=== PATIENT | female | born 1960 | race Caucasian/White ===

== ENCOUNTER 2017-11-14 15:37 | Emergency (ER) | payer BC ==
[2017-11-14] MEDS ORDERED: 50% Dextrose in Water 50 ML Syringe ONE (15:38)
[2017-11-14] MEDS ORDERED: 50% Dextrose in Water 50 ML Syringe IVPUSH ONE (15:40)
--- NOTE | 2017-11-14 15:43 | EDM.PDOC ---
ED HPI GENERAL MEDICAL PROBLEM - General Chief Complaint: Diabetic Complaint Stated Complaint: DIABETIC SEIZURE Time Seen by Provider: 11/14/17 15:42 Source of Information: Reports: Patient - History of Present Illness INITIAL COMMENTS - FREE TEXT/NARRATIVE: HISTORY AND PHYSICAL: History of present illness: []Patient presents with insulin reaction, just prior to arrival she had taken a dose of sliding scale insulin after eating with her NovoLog pen her found her to be in an altered mental state, he provided oral glucose on arrival her Accu-Chek measured 55, on [facility] urologist ring 25, we provided a half amp of D50 patient was alert mental status improved greatly she has been stable in the 1 teens over the last hour or hour and a half No fever nausea vomiting chills sweats no chest pain shortness breath headache dizziness palpitation no bowel or urine symptoms Review of systems: As per history of present illness and below otherwise all systems reviewed and negative. Past medical history: As per history of present illness and as reviewed below otherwise noncontributory. Surgical history: As per history of present illness and as reviewed below otherwise noncontributory. Social history: No reported history of drug or alcohol abuse. Family history: As per history of present illness and as reviewed below otherwise noncontributory. Physical exam: HEENT: Atraumatic, normocephalic, pupils reactive, negative for conjunctival pallor or scleral icterus, mucous membranes moist, throat clear, neck supple, nontender, trachea midline. Lungs: Clear to auscultation, breath sounds equal bilaterally, chest nontender. Heart: S1S2, regular, negative for clicks, rubs, or JVD. Abdomen: Soft, nondistended, nontender. Negative for masses or hepatosplenomegaly. Negative for costovertebral tenderness. Pelvis: Stable nontender. Genitourinary: Deferred. Rectal: Deferred. Extremities: Atraumatic, negative for cords or calf pain. Neurovascular unremarkable. Neuro: Awake, alert, oriented. Cranial nerves II through XII unremarkable. Cerebellum unremarkable. Motor and sensory unremarkable throughout. Exam nonfocal. Diagnostics: []CBC CMP UA EKG Chest 1 view Therapeutics: []Half amp D50 Potassium 40 mEq by mouth now 40 mEq by mouth daily 3 days Continue normal diet and insulin as directed Impression: []Hypoglycemia resolved Insulin reaction resolved Hypokalemia Chronic history of baseline Definitive disposition and diagnosis as appropriate pending reevaluation and review of above. - Related Data Allergies Allergy/AdvReac Type Severity Reaction Status Date / Time No Known Allergies Allergy Verified 11/14/17 15:39 Home Meds: Home Meds . [Unable to Verify Home Med List] 11/14/17 [History] Social & Family History - Tobacco Use Smoking Status *Q: Current Every Day Smoker Years of Tobacco use: 30 - Alcohol Use Days Per Week of Alcohol Use: 0 - Recreational Drug Use Recreational Drug Use: No ED ROS GENERAL - Review of Systems Review Of Systems: ROS reveals no pertinent complaints other than HPI. ED EXAM GENERAL NO PERIP PULSE - Physical Exam Exam: See Below Course - Vital Signs Last Recorded V/S: Last Vital Signs Temp 96.0 F 11/14/17 15:39 Pulse 71 11/14/17 15:39 Resp 18 11/14/17 15:39 BP 123/39 L 11/14/17 15:39 Pulse Ox 96 11/14/17 15:39 - Orders/Labs/Meds Orders: Active Orders 24 hr Category Date Time Status EKG Documentation Completion [RC] STAT Care 11/14/17 15:42 Active UA W/MICROSCOPIC [URIN] Stat Lab 11/14/17 15:41 Uncollected Sodium Chloride 0.9% [Normal Saline] 1,000 ml Med 11/14/17 15:45 Active IV STAT Medication Orders Sodium Chloride (Normal Saline) 1,000 mls @ 125 mls/hr IV STAT CRICKET Last Admin: 11/14/17 16:26 Dose: 125 mls/hr Labs: Laboratory Tests 11/14/17 11/14/17 11/14/17 Range/Units 15:50 15:50 15:57 WBC 9.76 (4.0-11.0) K/uL RBC 4.67 (4.30-5.90) M/uL Hgb 14.6 (12.0-16.0) g/dL Hct 42.7 (36.0-46.0) % MCV 91.4 (80.0-98.0) fL MCH 31.3 (27.0-32.0) pg MCHC 34.2 (31.0-37.0) g/dL RDW Std Deviation 43.8 (28.0-62.0) fl RDW Coeff of Larry 13 (11.0-15.0) % Plt Count 327 (150-400) K/uL MPV 10.70 (7.40-12.00) fL Neut % (Auto) 40.7 L (48.0-80.0) % Lymph % (Auto) 47.7 H (16.0-40.0) % [place] % (Auto) 9.9 (0.0-15.0) % Eos % (Auto) 1.2 (0.0-7.0) % Baso % (Auto) 0.5 (0.0-1.5) % Neut # (Auto) 4.0 (1.4-5.7) K/uL Lymph # (Auto) 4.7 H (0.6-2.4) K/uL [place] # (Auto) 1.0 H (0.0-0.8) K/uL Eos # (Auto) 0.1 (0.0-0.7) K/uL Baso # (Auto) 0.1 (0.0-0.1) K/uL Nucleated RBC % 0.2 /100WBC Nucleated RBCs # 0 K/uL Sodium 141 (136-146) mmol/L Potassium 2.9 L (3.5-5.1) mmol/L Chloride 108 (98-110) mmol/L Carbon Dioxide 22 (21-31) mmol/L BUN 14 (6.0-23.0) mg/dL Creatinine 0.7 (0.6-1.5) mg/dL Est Cr Clr Drug Dosing 71.82 mL/min Estimated GFR (MDRD) > 60.0 ml/min Glucose 25 L* (60-110) mg/dL POC Glucose 98 (60-110) mg/dL Calcium 9.6 (8.8-10.8) mg/dL Total Bilirubin 0.5 (0.1-1.5) mg/dL AST 19 (5-40) IU/L ALT 14 (8-54) IU/L Alkaline Phosphatase 106 (40-150) Total Protein 7.5 (6.0-8.0) g/dL Albumin 4.2 (3.5-5.0) g/dL Globulin 3.3 (2.0-3.5) g/dL Albumin/Globulin Ratio 1.3 (1.3-2.8) 11/14/17 11/14/17 11/14/17 Range/Units 16:20 17:01 17:32 WBC (4.0-11.0) K/uL RBC (4.30-5.90) M/uL Hgb (12.0-16.0) g/dL Hct (36.0-46.0) % MCV (80.0-98.0) fL MCH (27.0-32.0) pg MCHC (31.0-37.0) g/dL RDW Std Deviation (28.0-62.0) fl RDW Coeff of Larry (11.0-15.0) % Plt Count (150-400) K/uL MPV (7.40-12.00) fL Neut % (Auto) (48.0-80.0) % Lymph % (Auto) (16.0-40.0) % [place] % (Auto) (0.0-15.0) % Eos % (Auto) (0.0-7.0) % Baso % (Auto) (0.0-1.5) % Neut # (Auto) (1.4-5.7) K/uL Lymph # (Auto) (0.6-2.4) K/uL [place] # (Auto) (0.0-0.8) K/uL Eos # (Auto) (0.0-0.7) K/uL Baso # (Auto) (0.0-0.1) K/uL Nucleated RBC % /100WBC Nucleated RBCs # K/uL Sodium (136-146) mmol/L Potassium (3.5-5.1) mmol/L Chloride (98-110) mmol/L Carbon Dioxide (21-31) mmol/L BUN (6.0-23.0) mg/dL Creatinine (0.6-1.5) mg/dL Est Cr Clr Drug Dosing mL/min Estimated GFR (MDRD) ml/min Glucose (60-110) mg/dL POC Glucose 81 117 H 146 H (60-110) mg/dL Calcium (8.8-10.8) mg/dL Total Bilirubin (0.1-1.5) mg/dL AST (5-40) IU/L ALT (8-54) IU/L Alkaline Phosphatase (40-150) Total Protein (6.0-8.0) g/dL Albumin (3.5-5.0) g/dL Globulin (2.0-3.5) g/dL Albumin/Globulin Ratio (1.3-2.8) Meds: Medications Generic Name Dose Route Start Last Admin Trade Name Veronica PRN Reason Stop Dose Admin Sodium Chloride 1,000 mls @ 125 mls/hr 11/14/17 15:45 11/14/17 16:26 Normal Saline IV 125 mls/hr STAT CRICKET Administration Discontinued Medications Generic Name Dose Route Start Last Admin Trade Name Freq PRN Reason Stop Dose Admin Potassium Chloride 40 meq 11/14/17 17:23 11/14/17 17:30 Klor-Con M20 PO 11/14/17 17:24 40 meq ONETIME ONE Administration Departure - Departure Time of Disposition: 18:06 Disposition: Home, Self-Care 01 Condition: Good Clinical Impression: Insulin reaction, Hypoglycemia - Discharge Information Referrals: PCP,Unknown [Primary Care Provider] - Forms: ED Department Discharge Additional Instructions: Eat your regular dinner tonight Hold insulin for tonight Continue regular insulin dosing tomorrow Return if symptoms persist or worsen or new concerning symptoms develop Potassium replacement for the next 3 days as directed Follow-up with primary care in 2 weeks sooner as needed The following information is given to patients seen in the emergency department who are being discharged to home. This information is to outline your options for follow-up care. We provide all patients seen in our emergency department with a follow-up referral. The need for follow-up, as well as the timing and circumstances, are variable depending upon the specifics of your emergency department visit. If you don't have a primary care physician on staff, we will provide you with a referral. We always advise you to contact your personal physician following an emergency department visit to inform them of the circumstance of the visit and for follow-up with them and/or the need for any referrals to a consulting specialist. The emergency department will also refer you to a specialist when appropriate. This referral assures that you have the opportunity for follow-up care with a specialist. All of these measure are taken in an effort to provide you with optimal care, which includes your follow-up. Under all circumstances we always encourage you to contact your private physician who remains a resource for coordinating your care. When calling for follow-up care, please make the office aware that this follow-up is from your recent emergency room visit. If for any reason you are refused follow-up, please contact the [facility] emergency department at and asked to speak to the emergency department charge nurse. - My Orders Last 24 Hours: My Active Orders 11/14/17 15:41 UA W/MICROSCOPIC [URIN] Stat 11/14/17 15:42 EKG Documentation Completion [RC] STAT 11/14/17 15:45 Sodium Chloride 0.9% [Normal Saline] 1,000 ml IV STAT - Assessment/Plan Last 24 Hours: My Active Orders 11/14/17 15:41 UA W/MICROSCOPIC [URIN] Stat 11/14/17 15:42 EKG Documentation Completion [RC] STAT 11/14/17 15:45 Sodium Chloride 0.9% [Normal Saline] 1,000 ml IV STAT
[2017-11-14] MEDS ORDERED: Sodium Chloride 0.9% 1,000 ML IV SCH (15:45)
--- NOTE | 2017-11-14 16:29 | CR ---
EXAMINATION: Portable chest radiograph. HISTORY: Pain. FINDINGS: The trachea is midline. The cardiomediastinal silhouette is within normal limits. No pulmonary infilt rates, effusions or pneumothorax. Osseous structures appear unremarkable. IMPRESSION: No acute cardiopulmonary process.
[2017-11-14 16:34] LABS: CHLORIDE,CL 108 mmol/L (98-110); SODIUM,NA 141 mmol/L (136-146)
[2017-11-14] MEDS ORDERED: Potassium Chloride 20 MEQ Tab.ER PO ONE (17:23)
[2017-11-14 23:09] VITALS: BP 127/58
== END 2017-11-14 18:21 | disposition home or self-care (01) ==
LOC: MW.ED 15:37
DX: R41.82 Altered mental status, unspecified (principal); T38.3X5A Adverse effect of insulin and oral hypoglycemic [antidiabetic] drugs, initial encounter; E11.649 Type 2 diabetes mellitus with hypoglycemia without coma; E87.6 Hypokalemia; F17.200 Nicotine dependence, unspecified, uncomplicated
CPT/HCPCS: 36415; 71010; 80053; 82962; 85025; 93005; 96361; 96374; 99285; A9270; J7040; J7060; 99284

== ENCOUNTER 2018-12-19 15:15 | Emergency (ER) | payer BC ==
--- NOTE | 2018-12-19 15:59 | EDM.PDOC ---
ED HPI GENERAL MEDICAL PROBLEM - General Chief Complaint: Diabetic Complaint Stated Complaint: DIABETIC ISSUES Time Seen by Provider: 12/19/18 15:30 Source of Information: Reports: Patient, Family () History Limitations: Reports: No Limitations - History of Present Illness INITIAL COMMENTS - FREE TEXT/NARRATIVE: Patient presents via EMS with a hypoglycemic episode. Both the patient and her recount the exact same story: The patient did not go home to eat lunch as she usually does because her vehicle was being repaired. She usually takes 25 units of Lantus daily and twice a day glucose checks with sliding scale-- averaging about 10 units twice a day. Today, she ate only what she had at her workplace. It was a dish she had never had and she did not like it so she only ate a very small amount. She had some glucose tabs with her but did not get to them soon enough. She reports that she has not been ill in any other way with dysuria, upper respiratory symptoms fever and so forth. She was going about her usual day at work. She just saw her primary care provider yesterday and "all my labs and everything looked normal". Her states that about a year and a half ago the same thing happened when she did not eat enough but usually she is conscientious about her diabetes and glucose control. - Related Data Allergies Allergy/AdvReac Type Severity Reaction Status Date / Time No Known Allergies Allergy Verified 12/19/18 15:30 Home Meds: Home Meds . [Unable to Verify Home Med List] 11/14/17 [History] Past Medical History HEENT History: Reports: None Cardiovascular History: Reports: None Respiratory History: Reports: None Gastrointestinal History: Reports: None Genitourinary History: Reports: None TREASURY ACCOUNTANT History: Reports: None Musculoskeletal History: Reports: Other (See Below) Other Musculoskeletal History: ankle surgery Neurological History: Reports: None Psychiatric History: Reports: None Endocrine/Metabolic History: Reports: Diabetes, Type II Hematologic History: Reports: None Immunologic History: Reports: None Oncologic (Cancer) History: Reports: None Dermatologic History: Reports: None - Past Surgical History Head Surgeries/Procedures: Reports: None HEENT Surgical History: Reports: None Cardiovascular Surgical History: Reports: None Respiratory Surgical History: Reports: None GI Surgical History: Reports: None Female Surgical History: Reports: None Endocrine Surgical History: Reports: None Neurological Surgical History: Reports: None Musculoskeletal Surgical History: Reports: None Oncologic Surgical History: Reports: None Dermatological Surgical History: Reports: None Social & Family History - Family History Family Medical History: Noncontributory - Tobacco Use Smoking Status *Q: Current Every Day Smoker Years of Tobacco use: 30 Packs/Tins Daily: 1 - Caffeine Use Caffeine Use: Reports: None - Recreational Drug Use Recreational Drug Use: No ED ROS GENERAL - Review of Systems Review Of Systems: ROS reveals no pertinent complaints other than HPI. ED EXAM GENERAL NO PERIP PULSE - Physical Exam Exam: See Below Exam Limited By: No Limitations General Appearance: Alert, No Apparent Distress Ears: Normal External Exam Nose: Normal Inspection Throat/Mouth: Normal Inspection Head: Atraumatic, Normocephalic Neck: Normal Inspection, Supple Respiratory/Chest: No Respiratory Distress, Lungs Clear, Normal Breath Sounds, No Accessory Muscle Use Cardiovascular: Normal Peripheral Pulses, Regular Rate, Rhythm Extremities: Normal Inspection, No Pedal Edema Neurological: Alert, Oriented, No Motor/Sensory Deficits Psychiatric: Normal Affect, Normal Mood Skin Exam: Warm, Dry, Intact, Normal Color, No Rash Course - Vital Signs Last Recorded V/S: Last Vital Signs Temp 34.1 C L 12/19/18 15:28 Pulse 75 12/19/18 15:28 Resp 18 12/19/18 15:28 BP 147/75 H 12/19/18 15:28 Pulse Ox 98 12/19/18 15:28 - Orders/Labs/Meds Labs: Laboratory Tests 12/19/18 Range/Units 15:26 POC Glucose 142 H (60-110) mg/dL Departure - Departure Time of Disposition: 16:00 Disposition: Home, Self-Care 01 Clinical Impression: Hypoglycemia associated with diabetes - Discharge Information *PRESCRIPTION DRUG MONITORING PROGRAM REVIEWED*: Not Applicable *COPY OF PRESCRIPTION DRUG MONITORING REPORT IN PATIENT AMY: Not Applicable Referrals: Martha Garcia DO [Physician] - Additional Instructions: 1. Resume usual routine with medications and diet. Guard against inadequate calorie intake. 2. Do not stay alone this afternoon and this evening.
[2018-12-19 16:25] VITALS: BP 122/61
== END 2018-12-19 16:26 | disposition home or self-care (01) ==
LOC: MW.ED 15:15
DX: E11.649 Type 2 diabetes mellitus with hypoglycemia without coma (principal); F17.210 Nicotine dependence, cigarettes, uncomplicated
CPT/HCPCS: 82962; 99284

== ENCOUNTER 2019-08-20 08:19 | Emergency (ER) | payer BC ==
[2019-08-20] MEDS ORDERED: 50% Dextrose in Water 50 ML Syringe IVPUSH ONE (08:20)
[2019-08-20] MEDS ORDERED: 50% Dextrose in Water 50 ML Syringe ONE (08:23)
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
[2019-08-20] MEDS ORDERED: Sodium Chloride 0.9% 1,000 ML IV ONE (08:55)
[2019-08-20] MEDS ORDERED: Sodium Chloride 0.9% 1,000 ML IV SCH (09:00)
[2019-08-20 09:15] LABS: BLOOD UREA NITROGEN,BUN 14 mg/dL (7.0-18.0); CARBON DIOXIDE,CO2 23.5 mmol/L (21.0-32.0); CHLORIDE,CL 108 mmol/L (98-107); GLUCOSE RANDOM 93 mg/dL (74-106); SODIUM,NA 142 mmol/L (136-145)
--- NOTE | 2019-08-20 10:22 | CR ---
Chest: Portable view of the chest was obtained. Comparison: Prior chest x-ray of 11/14/17. Heart size and mediastinum are normal. Questionable nodule within the right upper lung is seen. Lungs show no acute parenchymal change. Bony structures are grossly intact. Impression: 1. Nodule within the right upper chest. Uncertain if this is due to costochondral calcification or actual parenchymal nodule. Noncontrast chest CT would be helpful to further evaluate. 2. Nothing acute is otherwise seen on portable chest x-ray. Diagnostic code #9 [id number]
[2019-08-20 14:30] VITALS: BP 136/64; PULSE 74
== END 2019-08-20 11:01 | disposition home or self-care (01) ==
LOC: MW.ED 08:19
DX: E11.649 Type 2 diabetes mellitus with hypoglycemia without coma (principal)
CPT/HCPCS: 36415; 71045; 80053; 82962; 84443; 84484; 85025; 93005; 96361; 96374; 99284; J7040; J7060

== ENCOUNTER 2022-09-16 09:20 | Emergency (ER) | payer BC ==
[2022-09-16 10:28] VITALS: BP 141/47; PULSE 66
[2022-09-16 10:53] LABS: CARBON DIOXIDE,CO2 25.7 mmol/L (21.0-32.0); POTASSIUM,K 4.5 mmol/L (3.5-5.1)
== END 2022-09-16 17:49 | disposition home or self-care (01) ==
LOC: MW.ED 09:20
DX: R07.89 Other chest pain (principal); I10 Essential (primary) hypertension; E11.9 Type 2 diabetes mellitus without complications; Z79.899 Other long term (current) drug therapy
CPT/HCPCS: 36415; 71045; 71045-26; 80053; 83735; 84443; 84484; 85025; 85610; 93005; 99285